=== PATIENT | male | born 1950 | race Two or more races ===

== ENCOUNTER → 2017-07-30 | Day surgery (SDC) | payer OTHER | END | disposition home or self-care (01) | LOC: ADM 07-27 13:15 → AMB-ENDOS 06:37 | DX: C20 Malignant neoplasm of rectum (principal) ==

== ENCOUNTER 2017-08-25 14:02 | Inpatient (IN) | payer OTHER ==
[~2017-08-25] VITALS: Ht 167.6 cm; Wt 74.8 kg
[2017-08-25] MEDS ORDERED: LISINOPRIL10 MG (17:29)
[2017-08-25] MEDS ORDERED: OXYC1TAB9 (17:29)
[2017-08-25] MEDS ORDERED: FENTANYL1 EAC4 (17:29)
[2017-08-25] MEDS ORDERED: GABAPENTIN300 MG (17:30)
[2017-08-25] MEDS ORDERED: IRON325 MG (17:30)
[2017-08-25] MEDS ORDERED: LIDOCAINE-PRILO30 GM (17:30)
[2017-09-04] MEDS ORDERED: Intestinex CAP PO (12:28)
[2017-09-04] MEDS ORDERED: HYOSCYAMINE0.125 M1 SL (12:28)
[2017-09-04] MEDS ORDERED: CIPRO500 MG PO (12:28)
[2017-09-04] MEDS ORDERED: FLAGYL500MG PO (12:28)
[2017-09-04] MEDS ORDERED: LIDOCAINE-PRILO30 GM RECTAL (12:28)
[2017-09-04] MEDS ORDERED: FENTANYL1 EAC4 TD (12:28)
== END 2017-09-04 14:24 | disposition home or self-care (01) | DRG 394 ==
LOC: ER 14:02 → SEC-K 18:00 → SURH 18:00 → SEC-K 08-26 18:48 → SURH 08-26 18:50
PROC: 30233N1 Transfusion of Nonautologous Red Blood Cells into Peripheral Vein, Percutaneous Approach (ICD-10-PCS; principal; 2017-08-26)
PROC: 3E0336Z Introduction of Nutritional Substance into Peripheral Vein, Percutaneous Approach (ICD-10-PCS; 2017-08-26)
PROC: BW21Y0Z Computerized Tomography (CT Scan) of Abdomen and Pelvis using Other Contrast, Unenhanced and Enhanced (ICD-10-PCS; 2017-08-26)
PROC: 02HV33Z Insertion of Infusion Device into Superior Vena Cava, Percutaneous Approach (ICD-10-PCS; 2017-08-27)
DX: K63.2 Fistula of intestine (principal); C19 Malignant neoplasm of rectosigmoid junction; D62 Acute posthemorrhagic anemia; L03.317 Cellulitis of buttock; B37.89 Other sites of candidiasis; E86.0 Dehydration; G89.3 Neoplasm related pain (acute) (chronic); F32.89 Other specified depressive episodes; B96.20 Unspecified Escherichia coli [E. coli] as the cause of diseases classified elsewhere; B96.7 Clostridium perfringens [C. perfringens] as the cause of diseases classified elsewhere; B96.6 Bacteroides fragilis [B. fragilis] as the cause of diseases classified elsewhere

== ENCOUNTER 2018-03-30 06:10 | Inpatient (IN) | payer OTHER ==
[~2018-03-30] VITALS: Ht 167.6 cm; Wt 69.4 kg
[~2018-03-30 06:10] MED LIST: CIPRO500 MG PO; FENTANYL1 EAC4; FENTANYL1 EAC4 TD; FLAGYL500MG PO; GABAPENTIN300 MG; HYOSCYAMINE0.125 M1 SL; IRON325 MG; Intestinex CAP PO; LIDOCAINE-PRILO30 GM; LIDOCAINE-PRILO30 GM RECTAL; LISINOPRIL10 MG; OXYC1TAB9
== END 2018-04-09 16:38 | disposition home or self-care (01) | DRG 331 ==
LOC: SURH 06:10 → O/R 06:10 → SURG 09:36 → SURH 19:17
PROVIDERS: Colon & Rectal Surgery
PROC: 0DTP4ZZ Resection of Rectum, Percutaneous Endoscopic Approach (ICD-10-PCS; 2018-03-30)
PROC: 0DTQ4ZZ Resection of Anus, Percutaneous Endoscopic Approach (ICD-10-PCS; 2018-03-30)
PROC: 0D1N4Z4 Bypass Sigmoid Colon to Cutaneous, Percutaneous Endoscopic Approach (ICD-10-PCS; 2018-03-30)
PROC: 0WUF47Z Supplement Abdominal Wall with Autologous Tissue Substitute, Percutaneous Endoscopic Approach (ICD-10-PCS; 2018-03-30)
PROC: 07TC4ZZ Resection of Pelvis Lymphatic, Percutaneous Endoscopic Approach (ICD-10-PCS; 2018-03-30)
PROC: 2W13X6Z Compression of Abdominal Wall using Pressure Dressing (ICD-10-PCS; 2018-03-30)
PROC: 0DTN4ZZ Resection of Sigmoid Colon, Percutaneous Endoscopic Approach (ICD-10-PCS; principal; 2018-03-30 12:00)
DX: C20 Malignant neoplasm of rectum (principal); E87.6 Hypokalemia; D50.0 Iron deficiency anemia secondary to blood loss (chronic); E86.0 Dehydration

== ENCOUNTER 2019-05-12 09:32 | Day surgery (SDC) | payer OTHER | END 2019-05-12 14:45 | disposition home or self-care (01) | LOC: AMB-ENDOS 09:32 | DX: K57.30 Diverticulosis of large intestine without perforation or abscess without bleeding (principal) ==

== ENCOUNTER 2020-02-08 13:03 | Inpatient (IN) | payer OTHER ==
[~2020-02-08] VITALS: Ht 170.2 cm; Wt 96.6 kg
[~2020-02-08 13:03] MED LIST changes: -LISINOPRIL10 MG; +LISINOPRIL10 MG PO
[2020-02-14] MEDS ORDERED: ZESTRIL10 M1 PO (10:30)
[2020-02-14] MEDS ORDERED: GLUMETZA500 MG PO (10:30)
[2020-02-14] MEDS ORDERED: [UNRECOGNIZED DRUG - OTHER] PO (10:31)
[2020-02-21] MEDS ORDERED: LEVO-T50 MCG (15:48)
[2020-02-23] MEDS ORDERED: OXYC1TAB9 PO (16:26)
== END 2020-02-23 16:49 | disposition home or self-care (01) | DRG 354 ==
LOC: SURG 02-21 09:34 → O/R 02-21 09:34 → SURH 02-21 09:45 → SURG 02-21 19:11 → SURH 02-21 20:15 → SURG 02-23 16:49
PROVIDERS: ADMIT Colon & Rectal Surgery; ATTEND Colon & Rectal Surgery
PROC: 0WQF0ZZ Repair Abdominal Wall, Open Approach (ICD-10-PCS; principal; 2020-02-21 20:15)
DX: K94.09 Other complications of colostomy (principal); K43.3 Parastomal hernia with obstruction, without gangrene; Z08 Encounter for follow-up examination after completed treatment for malignant neoplasm; Z85.038 Personal history of other malignant neoplasm of large intestine

== ENCOUNTER 2021-03-24 05:10 | Day surgery (SDC) | payer OTHER ==
[~2021-03-24 05:10] MED LIST changes: +AMLODIPINE BESY10 MG PO; +CRESTOR40 MG PO; +GABAPEN PO; +GLUMETZA500 MG PO; +LEVO-T50 MCG; +OXYC1TAB9 PO; +ZESTRIL10 M1 PO; +[UNRECOGNIZED DRUG - OTHER] PO
[2021-03-24] MEDS ORDERED: AMOX1TAB5 PO (08:57)
[2021-03-24] MEDS ORDERED: ULTRACET PO (08:58)
[2021-03-24] MEDS ORDERED: PROTONIX40 MG PO (08:59)
== END 2021-03-24 11:50 | disposition home or self-care (01) ==
LOC: CIR.AMB 05:10
PROVIDERS: ATTEND Surgery
DX: D17.1 Benign lipomatous neoplasm of skin and subcutaneous tissue of trunk (principal); Z20.822 Contact with and (suspected) exposure to COVID-19